=== PATIENT | female | born 1995 | race Caucasian/White ===

== ENCOUNTER 2016-10-10 11:53 | Emergency (ER) | payer BC ==
[2016-10-10] MEDS ORDERED: ONDANSETRON DISINTEGRATING 4 MG TAB ONE (12:36)
[2016-10-10] MEDS ORDERED: ONDANSETRON DISINTEGRATING 4 MG TAB PO ONE (12:39)
[2016-10-10] MEDS ORDERED: NS 1,000 ML IV ONE (13:03)
[2016-10-10 13:28] LABS: % IMMATURE GRANULYOCYTES 0.2 % (0.0-1.1); ABSOLUTE IMMATURE GRANULOCYTES 0.02 10^3/uL (0.00-0.10); ADD DIFF? NO; ADD MORPH? NO; ADD SCAN? NO; ATYPICAL LYMPHOCYTE FLAG 10 (0-99); FRAGMENT RBC FLAG 0 (0-99); HEMATOCRIT 42.1 % (38.0-47.0); HEMOGLOBIN 15.1 g/dL (12.6-16.3); LEFT SHIFT FLG 10 (0-99); LIPEMIA HEMOLYSIS FLAG 90 (0-99); MEAN CELL HEMOGLOBIN 30.9 pg (27.9-34.1); MEAN CELL HEMOGLOBIN CONCENTR. 35.9 g/dL (32.4-36.7); MEAN CELL VOLUME 86.1 fL (81.5-99.8); MEAN PLATELET VOLUME 10.1 fL (8.7-11.7); PLATELET CLUMPS FLAG 10 (0-99); PLATELET COUNT 156 10^3/uL (150-400); RED BLOOD CELL COUNT 4.89 10^6/uL (4.18-5.33); RED CELL DISTRIBUTION WIDTH 12.7 % (11.5-15.2)
[2016-10-10 13:33] LABS: COLOR YELLOW; LEUKOCYTE ESTERASE,URINE NEGATIVE (NEGATIVE); NITRITE,URINE NEGATIVE (NEGATIVE)
[2016-10-10 13:34] LABS: MUCUS 1+ /lpf (NONE-1+)
[2016-10-10] MEDS ORDERED: ONDANSETRON 4 MG/2 ML VIAL ONE (13:35)
[2016-10-10] MEDS ORDERED: ONDANSETRON 4 MG/2 ML VIAL IVP ONE (13:39)
[2016-10-10 13:53] LABS: ANION GAP 12 mEq/L (8-16); CALCIUM 9.5 mg/dL (8.5-10.4); CARBON DIOXIDE 23 mEq/l (22-31); CHLORIDE 105 mEq/L (97-110); CREATININE 0.7 mg/dL (0.6-1.0); GLOMERULAR FILTRATION RATE > 60; GLUCOSE 106 mg/dL (70-100); POTASSIUM 4.5 mEq/L (3.5-5.2); SODIUM 140 mEq/L (134-144)
--- NOTE | 2016-10-10 14:12 | EDPHY ---
H & P Time Seen by Provider: 10/10/16 13:03 HPI/ROS: HPI Back pain, abdominal pain, vomiting, diarrhea. 21-year-old female by private vehicle with her mother. This patient reports that since 8:00 a.m. she has had right-sided flank pain with radiation into the right lower quadrant associated with nausea, vomiting and diarrhea. She reports multiple episodes of nonbilious, nonbloody vomiting. She has had several episodes of watery diarrhea. No bloody or melenic stool. She has not been running a fever. There is no history of trauma. ROS: Constitutional: No fever, no chills. No weakness. Eyes: No discharge. No changes in vision. ENT: No sore throat. No nasal congestion or rhinorrhea. Respiratory: No cough. No shortness of breath. Cardiac: No chest pain, no palpitations. Gastrointestinal: No abdominal pain, no vomiting, no diarrhea. Genitourinary: No hematuria. No dysuria or increased frequency with urination. Musculoskeletal: No back pain. No neck pain. No myalgias or arthralgias. Skin: No rashes. Neurological: No headache. No focal weakness or altered sensation. Past medical history: Eczema. History of narcotic abuse. Social history: Here with mother. No alcohol. Physical Exam: General Appearance: Alert, no distress. This patient is responding to questions appropriately and in full sentences. This patient appears well- hydrated and well-nourished. Eyes: Pupils equal and round no pallor or injection. No lid edema, erythema or injection. Respiratory: There are no retractions, lungs are clear to auscultation with good air movement bilaterally. Cardiovascular: Regular rate and rhythm. No murmur. Gastrointestinal: Abdomen is soft with mild and vague tenderness on palpation of the right lower quadrant, no masses, bowel sounds normal. No focal tenderness at McBurney's point. No Robledo sign. Neurological: Motor sensory function is grossly intact. Cranial nerves are normal. Gait is normal. Skin: Warm and dry, no rashes. Musculoskeletal: Neck is supple and nontender. Mild CVA tenderness on the right side. No CVA tenderness on the left side. Extremities are symmetrical. All joints range without pain or impingement. Psychiatric: No agitation. No depression. Database: EKG: Imaging: CT scan of abdomen and pelvis without contrast; there is a punctate right upper pole calculus. No ureteral calculus. No evidence of ureteral obstruction. Questionable polycystic ovarian disease. No indirect evidence of appendicitis. 6 mm nodule at the left lung base. Results were discussed with staff radiologist Dr. Brian Lyn. Procedures: Emergency department course: IV was placed. She was started on IV normal saline with 1 L to be given over the next hour. She was initially given 4 mg of ODT Zofran in triage. This was followed by 4 mg of IV Zofran given by the nursing staff prior to my evaluation. After review of her renal function, she was given 30 mg of IV Toradol. She was also given 2.5 mg of IV Haldol for nausea. 3:15 p.m., patient had some anxiety after she was given IV Haldol as above for nausea. We are not able to give Phenergan secondary to a nationwide shortage of this medication. She declined Reglan. She was given 25 mg of IV Benadryl. 3:45 p.m., patient re-evaluated. Resting comfortably at this time. Results of CT scan as well as laboratory work and urinalysis discussed with her and her mother. Repeat abdominal exam she is soft and without tenderness on palpation. Her bowel sounds are present. She feels comfortable going home and I feel she is safe for discharge. Follow-up and return to emergency department precautions were reviewed with her and her mother. All of their questions were answered. Patient was discharged home in good condition with her mother who is driving. Differential Diagnosis: The differential diagnosis on this patient includes but is not limited to gastroenteritis, pyelonephritis, ureterolithiasis. This represents a partial list of diagnoses considered. These considerations are based on history, physical exam, past history, reassessment and diagnostic testing. Smoking Status: Never smoked Constitutional: Initial Vital Signs Temperature (C) 36.4 C 10/10/16 12:31 Heart Rate 91 10/10/16 12:31 Respiratory Rate 20 10/10/16 12:31 Blood Pressure 101/77 10/10/16 12:31 O2 Sat (%) 96 10/10/16 12:31 O2 Delivery Mode Room Air Allergies/Adverse Reactions: lithium Allergy (Verified 10/10/16 12:30) Home Medications: Medication Instructions Recorded CeleXA 20 MG 10/10/16 Lo Loestrin Fe 1-10 Tablet 10/10/16 Ondansetron Odt [Zofran Odt 4 mg 4 mg PO Q4PRN PRN #10 tab 10/10/16 (*)] Valacyclovir 10/10/16 Medical Decision Making - Data Points Laboratory Results: Laboratory Results 10/10/16 13:31 10/10/16 13:15 Medications Given: Discontinued Medications Diphenhydramine HCl (Benadryl Injection) 25 mg IVP EDNOW ONE Stop: 10/10/16 15:32 Last Admin: 10/10/16 15:35 Dose: 25 mg Haloperidol Lactate (Haldol Injection) 2.5 mg IVP EDNOW ONE Stop: 10/10/16 14:15 Last Admin: 10/10/16 15:20 Dose: 1.25 mg Sodium Chloride (Ns) 1,000 mls @ 0 mls/hr IV ONCE ONE PRN Reason: Wide Open Stop: 10/10/16 13:04 Last Admin: 10/10/16 13:30 Dose: 1,000 mls Ketorolac Tromethamine (Toradol) 30 mg IVP EDNOW ONE Stop: 10/10/16 14:14 Last Admin: 10/10/16 14:21 Dose: 30 mg Ondansetron HCl (Zofran Odt) 4 mg PO EDNOW ONE Stop: 10/10/16 12:40 Last Admin: 10/10/16 12:41 Dose: 4 mg Ondansetron HCl (Zofran) 4 mg IVP EDNOW ONE Stop: 10/10/16 13:40 Last Admin: 10/10/16 13:40 Dose: 4 mg Departure - Departure Disposition: Home, Routine, Self-Care Clinical Impression: Vomiting, Diarrhea, Right lower back pain Condition: Good Instructions: Gastroenteritis (ED), Abdominal Pain (ED) Additional Instructions: Read and follow provided instructions. Follow-up with your primary care physician or OBGYN when you return home to [place]. You should obtain a pelvic ultrasound at that time to evaluate for possible polycystic ovarian syndrome. Ibuprofen dosin mg every 6 hours with meals for the next 3 days only. Zofran dosin mg, under the tongue every 4-6 hours as needed for nausea and vomiting. Return to the emergency department for worsening pain, vomiting and inability to keep fluids down despite medications, blood in stool or other serious concerns. Referrals: NONE *PRIMARY CARE P,. [Primary Care Provider] - As per Instructions Prescriptions: Ondansetron Odt [Zofran Odt 4 mg (*)] 4 mg PO Q4PRN PRN #10 tab PRN Reason: For Nausea & Vomiting
[2016-10-10] MEDS ORDERED: KETOROLAC 30 MG/1 ML SDV IVP ONE (14:13)
[2016-10-10] MEDS ORDERED: HALOPERIDOL LACT 5 MG/ML INJ ONE (14:15)
[2016-10-10 14:47] VITALS: PULSE 81
[2016-10-10] MEDS: HALOPERIDOL LACT 5 MG/ML INJ IVP ONE ×2 (14:47→15:20)
[2016-10-10 16:30] VITALS: BP 119/71; RESP 15; TEMP 98.8; O2SAT 99
== END 2016-10-10 16:29 | disposition home or self-care (01) ==
DX: M54.5 Low back pain (principal); R19.7 Diarrhea, unspecified; R11.10 Vomiting, unspecified
CPT/HCPCS: 96374; J1200; J1885; J2405